=== PATIENT | female | born 1980 | race Two or more races ===

== ENCOUNTER 2017-11-22 20:22 | Emergency (ER) | payer BC, OTHER ==
[~2017-11-22] VITALS: Ht 170.2 cm; Wt 77.1 kg
[~2017-11-22 20:22] MED LIST: "\\\"ANTIBIOTIC\\\""; BIRTH CONTROL
[2017-11-22 20:43] VITALS: BP 131/87
--- NOTE | 2017-11-22 22:32 | NUR ---
CALLED X4; INFORMED BY CLINICAL SOCIAL WORKER "PT CARMEN"
--- NOTE | 2017-11-22 23:50 | NUR ---
PT RETURNED TO ER LOBBY. AWAITS ROOM ASSIGNMENT.
[2017-11-23] MEDS ORDERED: AMOX/CLAVULANATE 875 MG TABLET ONE (00:28)
[2017-11-23] MEDS ORDERED: TDAP [DIPH/PERTUSSIS/TET] 0.5 ML VIAL IM ONE ×2 (00:28→00:30)
[2017-11-23] MEDS ORDERED: LIDOCAINE HCL/MPF 1% 30 ML VIAL IJ ONE (00:29)
[2017-11-23] MEDS ORDERED: AMOX/CLAVULANATE 875 MG TABLET PO ONE (00:30)
[2017-11-23] MEDS ORDERED: LIDOCAINE HCL/PF 1% 30 ML VIAL IM ONE (00:30)
[2017-11-23] MEDS ORDERED: LIDOCAINE 1% INJ 50 ML MDV IJ ONE (00:45)
== END 2017-11-23 01:45 | disposition home or self-care (01) ==
LOC: ER 20:26
DX: S61.452A Open bite of left hand, initial encounter (principal); W55.01XA Bitten by cat, initial encounter; Y93.89 Activity, other specified; Y92.89 Other specified places as the place of occurrence of the external cause; Y99.8 Other external cause status
CPT/HCPCS: 12001; 90471; 90715; 99283; A4606; A6402; J3490 ×2; Z7610